=== PATIENT | male | born 1980 | race Hispanic/Latino ===

== ENCOUNTER 2020-08-07 15:24 | Emergency (ER) | payer BC ==
[~2020-08-07] VITALS: Ht 177.8 cm; Wt 113.4 kg
[2020-08-07] MEDS ORDERED: ASPIRIN 81 MG CHEW TAB PO STA (15:51)
[2020-08-07 15:58] LABS: BASOPHILS # (AUTO) 0.2 (0.0-0.1); BASOPHILS % 1.6 % (0.0-1.0); EOSINOPHILS # (AUTO) 1.7 (0.0-0.4); EOSINOPHILS % 17.9 % (0.0-6.0); HEMATOCRIT 43.5 % (38.2-49.6); HEMOGLOBIN 15.1 g/dL (14.0-18.0); LYMPHOCYTES # (AUTO) 2.3 (1.0-3.2); LYMPHOCYTES % 24.2 % (18.0-39.1); MEAN CORPUSCULAR HGB CONC 34.7 g/dL (31-35); MEAN CORPUSCULAR VOLUME 83.7 fL (81-99); MONOCYTES # (AUTO) 0.8 (0.2-0.8); MONOCYTES % 8.7 % (4.4-11.3); NEUTROPHILS # (AUTO) 4.4 (2.1-6.9); NEUTROPHILS % 47.2 % (38.7-80.0); PLATELET COUNT 270 x10e3/uL (140-360); RED CELL DISTRIBUTION WIDTH 12.5 % (11.7-14.4)
[2020-08-07] MEDS ORDERED: ASPIRIN 81 MG CHEW TAB PO ONE (16:00)
[2020-08-07 16:04] LABS: INR 0.9; PROTHROMBIN TIME 12.7 seconds (11.9-14.5)
[2020-08-07 16:05] LABS: PARTIAL THROMBOPLASTIN TIME 28.5 seconds (23.8-35.5)
[2020-08-07 16:12] LABS: ALANINE AMINOTRANSFERASE 52 IU/L (0-55); ALBUMIN 4.4 g/dL (3.5-5.0); ALBUMIN/GLOBULIN RATIO 1.2 (0.8-2.0); ALKALINE PHOSPHATASE 77 IU/L (40-150); ANION GAP 14.9 mmol/L (8-16); BLOOD UREA NITROGEN 11 mg/dL (7-26); BUN/CREATININE RATIO 11 (6-25); CARBON DIOXIDE 24 mmol/L (22-29); CHLORIDE 103 mmol/L (98-107); CREATINE KINASE 183 IU/L (30-200); CREATININE, SERUM 0.97 mg/dL (0.72-1.25); EST GLOMERULAR FILTRATION RATE > 60 ML/MIN (60-); GLUCOSE 88 mg/dL (74-118); POTASSIUM 3.9 mmol/L (3.5-5.1); SODIUM 138 mmol/L (136-145)
[2020-08-07 17:40] VITALS: BP 123/81
== END 2020-08-07 17:39 | disposition home or self-care (01) ==
LOC: ER 15:49
DX: R07.89 Other chest pain (principal); K21.9 Gastro-esophageal reflux disease without esophagitis; R94.31 Abnormal electrocardiogram [ECG] [EKG]; F41.9 Anxiety disorder, unspecified
CPT/HCPCS: 36415; 71045; 80053; 82550; 82553; 83880; 84484; 85025; 85610; 85730; 93005; 99284